=== PATIENT | female | born 1935 | race Caucasian/White ===

== ENCOUNTER → 2017-02-25 | Outpatient (CLI) | payer MEDICARE, OTHER ==
[~2017-02-25] MED LIST: 0.9 % SODIUM CHLORIDE 10 ML VIAL ONE; DEXAMETHASONE SOD PHOS 4 MG/ML VIAL ONE; IOHEXOL 300 MG/ML 50 ML VIAL. ONE; LIDOCAINE 1% PF 30 ML VIAL. ONE
== END | disposition home or self-care (01) ==
LOC: SURG 13:30
PROVIDERS: ATTEND Anesthesiology
DX: M54.12 Radiculopathy, cervical region (principal); J44.9 Chronic obstructive pulmonary disease, unspecified; M19.91 Primary osteoarthritis, unspecified site; E11.9 Type 2 diabetes mellitus without complications
CPT/HCPCS: 62321; 99204; J1100; J2001; Q9967

== ENCOUNTER 2020-05-24 09:07 | Emergency (ER) | payer MEDICARE, OTHER ==
[~2020-05-24] VITALS: Ht 160 cm; Wt 82.0 kg
[2020-05-24 09:34] VITALS: BP 174/103
--- NOTE | 2020-05-24 09:38 | PHYS DOC ---
Past History Past Medical History: COPD, Hypertension Adult General Chief Complaint Chief Complaint: SHORTNESS OF BREATH HPI HPI Patient is a 84-year-old female presenting via EMS for shortness of breath. She is accompanied by her daughter who also serves as historian. Reports ongoing shortness of breath which has been a chronic issue. States she has had this episode of shortness of breath "for years ". She has history of COPD, has no history of intubation. Has inhalers at home but does not use them regularly, has no history of oxygen dependence. There been no recent fever, long distance travel, COVID-19 contact, syncope, dizziness, falls, trauma, chest pain, sputum production, hemoptysis, abdominal pain, changes in bladder or bowel function, no motor or sensory function changes past baseline. Patient lives at home and performs most ADLs by herself, daughter reports that she goes over daily to assist with other household tasks and things her mother may need throughout the day. Patient is tearful throughout examination stating it is all her fault, " I have just been ornery... I have not been treating my daughter well, I have not been listening to her or taking her advice" in regards to taking her medications and inhalers. Patient's primary care physician is Dr. Doshi, reports "it has been a long time" since she saw him in outpatient setting for follow-up. States this morning she voiced feelings of shortness of breath when daughter came over to check on her, she was reluctant to use any home inhalers and so, decision was made to call EMS for transport to our facility for evaluation. Of note, she did not take any home medications this morning such as her hypertension medications Review of Systems Review of Systems Fourteen body systems of review of systems have been reviewed. See HPI for pertinent positives and negative responses, other ruff all other systems are negative, non-pertinent or non-contributory Physical Exam Physical Exam Constitutional: Well developed, well nourished, no acute distress, non-toxic appearance. HENT: Normocephalic, atraumatic, bilateral external ears normal, oropharynx moist, no oral exudates, nose normal. Eyes: PERRLA, EOMI, conjunctiva normal, no discharge. Neck: Normal range of motion, no tenderness, supple, no stridor. Cardiovascular: Heart rate regular, sinus rhythm, no murmurs rubs or gallops Lungs & Thorax: No obvious respiratory distress, no accessory muscle use, diminished breath sounds bilaterally without any obvious rhonchi or rails, speaking in few word sentences Abdomen: Bowel sounds normal, soft, no tenderness, no masses, no pulsatile masses. Nonsurgical abdomen, no peritoneal signs Skin: Warm, dry, no erythema, no rash. Back: No tenderness, no CVA tenderness. Extremities: No tenderness, no cyanosis, no clubbing, ROM intact, 2+ edema Neurologic: Alert and oriented X 3, grossly normal motor & sensory function, no focal deficits noted. Psychologic: Judgment normal, anxious affect and mood, has history of dementia but is at baseline per daughter who accompanies patient Current Patient Data Vital Signs Vital Signs Date Time Temp Pulse Resp B/P (MAP) Pulse Ox O2 Delivery O2 Flow Rate FiO2 05/24/20 09:34 97.6 102 18 174/103 (126) 94 Room Air Lab Results Laboratory Tests Test 05/24/20 10:10 White Blood Count 3.9 x10^3/uL Red Blood Count 5.82 x10^6/uL Hemoglobin 14.8 g/dL Hematocrit 44.0 % Mean Corpuscular Volume 76 fL Mean Corpuscular Hemoglobin 25 pg Mean Corpuscular Hemoglobin Concent 34 g/dL Red Cell Distribution Width 21.1 % Platelet Count 193 x10^3/uL Neutrophils (%) (Auto) 75 % Lymphocytes (%) (Auto) 18 % Monocytes (%) (Auto) 4 % Eosinophils (%) (Auto) 1 % Basophils (%) (Auto) 2 % Neutrophils # (Auto) 2.9 x10^3uL Lymphocytes # (Auto) 0.7 x10^3/uL Monocytes # (Auto) 0.2 x10^3/uL Eosinophils # (Auto) 0.0 x10^3/uL Basophils # (Auto) 0.1 x10^3/uL Sodium Level 139 mmol/L Potassium Level 3.5 mmol/L Chloride Level 102 mmol/L Carbon Dioxide Level 24 mmol/L Anion Gap 13 Blood Urea Nitrogen 9 mg/dL Creatinine 0.7 mg/dL Estimated GFR (Cockcroft-Gault) 79.3 Glucose Level 105 mg/dL Calcium Level 10.4 mg/dL Troponin I Quantitative < 0.017 ng/mL EKG EKG EKG ordered and interpreted by myself at 0941 hrs. as sinus rhythm at 101 bpm, unremarkable intervals, left axis deviation, no acute ischemic findings, no STEMI Radiology/Procedures Radiology/Procedures EXAM: Chest, single view. HISTORY: Shortness of breath. COMPARISON: None. FINDINGS: A frontal view of the chest is obtained. There are suspected chronic interstitial changes with superimposed atelectasis or scarring. There are few calcified granulomatous. The heart is normal in size. There is no pleural effusion or pneumothorax. There are surgical anchors within the right humeral head. IMPRESSION: Chronic appearing interstitial changes. Electronically signed by: Magy Abraham MD (05/24/2020 10:00 AM) [id number] Heart Score HEART Score for Chest Pain: HEART Score for Chest Pain Response (Comments) Value History Slighlty/Non-Suspicious 0 ECG Normal 0 Age > 65 2 Risk Factors 1 or 2 Risk Factors 1 Troponin < Normal Limit 0 Total 3 Risk Factors: Risk Factors: DM, Current or recent (<one month) smoker, HTN, HLP, family histo ry of CAD, obesity. Risk Scores: Risk Factors: DM, Current or recent (<one month) smoker, HTN, HLP, family history of CAD, obesity. Course & Med Decision Making Course & Med Decision Making Discussed with the patient all findings and diagnostic testing. I discussed most likely diagnosis of chronic obstructive pulmonary disease without exacerbation. Patient has been off all inhaler therapies, there is no indication for antibiotics today. I disclosed there was no obvious emergent and/or surgical findings today. With that said, I did disclose this might be an acute presentation more concerning pathology. I did offer patient hospitalization for continued work-up and observation but she declined. She has good support at home with her daughter who comes over daily. She states she will start taking all inhalers and other medications as scheduled on a daily basis and follow-up with her primary care physician in upcoming 2 to 7 days time for repeat evaluat ion in outpatient setting. Strict return precautions were also discussed at length with good understanding by patient and daughter. Patient and daughter voiced understanding and agreement with the plan. Patient and daughter knows to come back for repeat evaluation if concerning signs or symptoms present prior to outpatient follow-up. Hemodynamically stable, ambulatory and well-appearing at time of disposition. Dragon Disclaimer Dragon Disclaimer This electronic medical record was generated, in whole or in part, using a voice recognition dictation system. Departure Departure: Impression: Primary Impression: Shortness of breath Additional Impression: COPD (chronic obstructive pulmonary disease) Disposition: 01 DC HOME SELF CARE/HOMELESS Condition: STABLE Referrals: LIDA DOSHI MD (PCP) Additional Instructions: You were seen for a shortness of breath. This appears to be a chronic problem in nature without any obvious or recent exacerbation from your baseline breathing. You have not been taking your regularly prescribed daily maintenance inhalers, you should take all medications your primary care physician prescribes as instructed. We discussed utility of further diagnostic work-up in ER setting that included laboratory analysis but joint decision was made to defer given that the symptoms have been ongoing for "years". As such, you should call your primary care physician immediately after ER departure to review ER visit this morning and discuss next steps of care. You should return to the ED if you develop worsening cough, shortness of breath, chest pain, or any other new or concerning symptoms. It was a pleasure to take care of you and I wish you the best going forward Problem Qualifiers BE RUIZ DO May 24, 2020 09:38
--- NOTE | 2020-05-24 10:02 | RAD ---
EXAM: Chest, single view. HISTORY: Shortness of breath. COMPARISON: None. FINDINGS: A frontal view of the chest is obtained. There are suspected chronic interstitial changes w ith superimposed atelectasis or scarring. There are few calcified granulomatous. The heart is normal in size. There is no pleural effusion or pneumothorax. There are surgical anchors within the right hu meral head. IMPRESSION: Chronic appearing interstitial changes. Electronically signed by: Magy Abraham MD (05/24/2020 10:00 AM) [id number]
[2020-05-24 10:37] LABS: BASO # 0.1 x10^3/uL (0.0-0.2); BASO % 2 % (0-3); EOS % 1 % (0-3); HEMOGLOBIN 14.8 g/dL (12.0-15.5); LYMPH # 0.7 x10^3/uL (1.0-4.8); LYMPH % 18 % (24-48); MEAN CORPUSCULAR HEMOGLOBIN 25 pg (25-35); MEAN CORPUSCULAR HGB CONC 34 g/dL (31-37); MEAN CORPUSCULAR VOLUME 76 fL (79-100); MONO # 0.2 x10^3/uL (0.0-1.1); MONO % 4 % (0-9); NEUT # 2.9 x10^3uL (1.8-7.7); NEUT % 75 % (31-73); PLATELET COUNT 193 x10^3/uL (140-400); RED BLOOD COUNT 5.82 x10^6/uL (3.50-5.40); RED CELL DISTRIBUTION WIDTH 21.1 % (11.5-14.5); WHITE BLOOD COUNT 3.9 x10^3/uL (4.0-11.0)
[2020-05-24 11:09] LABS: CALCIUM 10.4 mg/dL (8.5-10.1); CREATININE 0.7 mg/dL (0.6-1.0); GFR 79.3; POTASSIUM 3.5 mmol/L (3.5-5.1)
[2020-05-24 11:49] LABS: ANISOCYTOSIS MOD; PLT ESTIMATE ADEQUATE (ADEQUATE)
--- NOTE | 2020-05-24 15:02 | EKG ---
[address] [address] Test Date: 2020-05-24 Test Time: 09:38:45 Pat Name: ALEX GUAMAN Department: Room: Gender: F Cloth Mender: : [id number] Requested By: BE RUIZ Order Number: [id number] Reading MD: Measurements Intervals [place] Rate: 101 P: 6 SC: 194 QRS: -4 QRSD: 100 T: 27 QT: 326 QTc: 429 Interpretive Statements SINUS TACHYCARDIA COMPLEX(ES) WITH ABERRANT INTRAVENTRICULAR CONDUCTION INTERPOLATED VENTRICULAR PREMATURE COMPLEX(ES) INTERPOLATED ATRIAL PREMATURE COMPLEX(ES) LEFTWARD AXIS T ABNORMALITY IN ANTEROLATERAL LEADS ABNORMAL ECG RI6.02 No previous ECG available for comparison
== END 2020-05-24 11:32 | disposition home or self-care (01) ==
LOC: ER 09:07
DX: J44.9 Chronic obstructive pulmonary disease, unspecified (principal); I10 Essential (primary) hypertension
CPT/HCPCS: 36415; 71045; 80048; 84484; 85025; 93005; 99285